=== PATIENT | female | born 1990 | race Caucasian/White ===

== ENCOUNTER 2020-12-17 04:01 | Inpatient (IN) | payer BC ==
[~2020-12-17] VITALS: Ht 170.2 cm; Wt 79.0 kg
[2020-12-17] MEDS ORDERED: FENTANYL PF 100 MCG/2ML ONE (04:19)
[2020-12-17] MEDS ORDERED: ONDANSETRON 2MG/ML, 2ML ONE (04:19)
[2020-12-17] MEDS ORDERED: NEWBORN KIT ONE (04:19)
[2020-12-17] MEDS ORDERED: OXYTOCIN 30U/ 0.9% NaCL 500ML 500 ML ONE (04:19)
[2020-12-17] MEDS ORDERED: FENTANYL PF 100 MCG/2ML IV PRN (04:30)
[2020-12-17] MEDS ORDERED: TERBUTALINE 1 MG/ML, 1ML IVPush PRN (04:30)
[2020-12-17] MEDS ORDERED: LACTATED RINGERS 1,000 ML IV SCH (04:30)
[2020-12-17] MEDS ORDERED: D5%-LACTATED RINGERS 1,000 ML IV SCH (04:30)
[2020-12-17] MEDS ORDERED: TERBUTALINE 1 MG/ML, 1ML SQ PRN (04:30)
[2020-12-17] MEDS ORDERED: FENTANYL PF 100 MCG/2ML IVPush PRN (04:30)
[2020-12-17] MEDS ORDERED: OXYTOCIN 30U/ 0.9% NaCL 500ML 500 ML IV ONE (04:30)
[2020-12-17] MEDS ORDERED: ONDANSETRON 2MG/ML, 2ML IVPush PRN (04:30)
[2020-12-17 04:54] LABS: BASOPHILS % (AUTO) 1 % (0-1); EOSINOPHILS % (AUTO) 0 % (1-7); LYMPHOCYTES % (AUTO) 11 % (22-44); MEAN CORPUSCULAR HEMOGLOBIN 31.2 pg (27.0-34.8); MEAN CORPUSCULAR HGB CONC 34.5 g/dL (32.4-35.8); MEAN PLATELET VOLUME 10.1 fL (7.4-10.4); MONOCYTES % (AUTO) 8 % (2-9); NEUTROPHILS % (AUTO) 81 % (42-75); PLATELET COUNT 118 x10^3/uL (130-400); RED BLOOD COUNT 4.42 x10^6/uL (3.82-5.3); RED CELL DISTRIBUTION WIDTH 13.3 % (9.6-15.2)
[2020-12-17] MEDS ORDERED: IBUPROFEN 600 MG TABLET ONE (06:36)
[2020-12-17] MEDS: IBUPROFEN 600 MG TABLET PO PRN ×3 (06:50→19:04)
[2020-12-17] MEDS ORDERED: OXYTOCIN 30U/ 0.9% NaCL 500ML 500 ML IV SCH (07:00)
[2020-12-17] MEDS ORDERED: SIMETHICONE 80 MG CHEW TAB PO PRN (07:00)
[2020-12-17] MEDS ORDERED: OXYcodone/APAP 5/325MG TABLET PO PRN ×2 (07:00)
[2020-12-17 09:40] VITALS: BP 108/63
[2020-12-17 13:00] VITALS: BP 104/62
[2020-12-17] MEDS: PRENATAL VIT/IRON/FA 1 EACH TABLET PO SCH (13:21)
[2020-12-17] MEDS: DOCUSATE 100 MG CAPSULE PO PRN (13:21)
[2020-12-17 13:41] LABS: BASOPHILS % (AUTO) 0 % (0-1); EOSINOPHILS % (AUTO) 0 % (1-7); LYMPHOCYTES % (AUTO) 7 % (22-44); MEAN CORPUSCULAR HGB CONC 35.3 g/dL (32.4-35.8); MEAN PLATELET VOLUME 10.5 fL (7.4-10.4); MONOCYTES % (AUTO) 7 % (2-9); NEUTROPHILS % (AUTO) 86 % (42-75); PLATELET COUNT 155 x10^3/uL (130-400); RED BLOOD COUNT 3.43 x10^6/uL (3.82-5.3); RED CELL DISTRIBUTION WIDTH 13.3 % (9.6-15.2)
[2020-12-17 16:00] VITALS: BP 99/59
[2020-12-17 21:00] VITALS: BP 97/61
[2020-12-18 01:00] VITALS: BP 96/58
[2020-12-18] MEDS: IBUPROFEN 600 MG TABLET PO PRN ×2 (02:36→09:23)
[2020-12-18] MEDS: DOCUSATE 100 MG CAPSULE PO PRN ×2 (02:36→09:23)
[2020-12-18 07:57] VITALS: BP 100/65
[2020-12-18] MEDS: PRENATAL VIT/IRON/FA 1 EACH TABLET PO SCH (09:23)
[2020-12-18] MEDS ORDERED: IBUP-1222 PO (11:54)
== END 2020-12-18 12:50 | disposition home or self-care (01) | DRG 807 ==
LOC: LDOP 04:01 → LDIP 04:23 → 2NW 08:36
PROVIDERS: ADMIT Obstetrics & Gynecology; ATTEND Obstetrics & Gynecology
PROC: 10E0XZZ Delivery of Products of Conception, External Approach (ICD-10-PCS; principal; 2020-12-17)
PROC: 0HQ9XZZ Repair Perineum Skin, External Approach (ICD-10-PCS; 2020-12-17)
PROC: 0UQMXZZ Repair Vulva, External Approach (ICD-10-PCS; 2020-12-17)
DX: O69.81X0 Labor and delivery complicated by cord around neck, without compression, not applicable or unspecified (principal); Z37.0 Single live birth; O70.0 First degree perineal laceration during delivery; O62.3 Precipitate labor; O71.82 Other specified trauma to perineum and vulva; Z3A.40 40 weeks gestation of pregnancy; O77.0 Labor and delivery complicated by meconium in amniotic fluid; Z20.822 Contact with and (suspected) exposure to COVID-19; Z88.5 Allergy status to narcotic agent
CPT/HCPCS: 36415; 85025; 86592; 86850; 86900; 87635; G0378; J2590; J7120